=== PATIENT | female | born 1970 ===

== ENCOUNTER 2023-12-31 10:26 | Outpatient (OUT) | payer OTHER, SELFPAY ==
--- NOTE | 2023-12-31 | XR_ITS ---
The [address] [address] Patient Name: AZUCENA EDOUARD MRN: [id number] date: 1970 Sex: F Assigned Patient Location: Current Patient Location: Accession/Order Number: [id number] Exam Date: 12/31/2023 10:26 Report Date: 01/03/2024 11:03 At the request of: CURTIS VORA Procedure: XR cervical spine 2-3V EXAMINATION: XR cervical spine 2-3V HISTORY: CERVICAL SPINE PAIN COMPARISON: No relevant comparison available. FINDINGS: BONES: Anterior mechanical fusion C5-C6-7. Normal height and alignment of the vertebral bodies. No significant facet arthropathy. DISC SPACES: Interval vertebral disc spacers C5-C6, C6-C7. No significant disc height reduction. PARASPINOUS: Negative. No paraspinous abnormality is seen. OTHER: Negative. XR/XR cervical spine 2-3V IMPRESSION: 1. Surgical changes as detailed above; no appreciable hardware failure. 2. Otherwise unremarkable cervical spine. Electronically authenticated by: RUKHSANA LOCKETT Date: 01/03/2024 11:03
== END 2023-12-31 10:27 | disposition home or self-care (01) ==
PROVIDERS: Visit Provider Orthopaedic Surgery Orthopaedic Surgery of the Spine
DX: M54.2 Cervicalgia (principal); Z47.89 Encounter for other orthopedic aftercare; M43.22 Fusion of spine, cervical region
CPT/HCPCS: 72040

== ENCOUNTER 2024-02-18 12:10 | Outpatient (OUT) | payer OTHER, SELFPAY ==
--- NOTE | 2024-02-18 | XR_ITS ---
[address] [address] Patient Name: AZUCENA EDOUARD MRN: [id number] date: 1970 Sex: F Assigned Patient Location: Current Patient Location: Accession/Order Number: [id number] Exam Date: 02/18/2024 12:11 Report Date: 02/20/2024 07:58 At the request of: CURTIS VORA Procedure: XR cervical spine 2-3V EXAMINATION: XR cervical spine 2-3V HISTORY: CERVICAL SPINE PAIN COMPARISON: XR cervical spine 12/31/2023 FINDINGS: BONES: Straightening of normal lordotic curvature. Mechanical fusion C5-C6-C7 via anterior plate and screws; no appreciable hardware fracture loosening. Grade 1 anterolisthesis of C7 on T1. Multilevel mild degenerative facet arthropathy. DISC SPACES: Intervertebral disc spacers C5-C6, C6-C7. No significant disc height reduction. PARASPINOUS: Negative. No paraspinous abnormality is seen. OTHER: Negative. XR/XR cervical spine 2-3V IMPRESSION: 1. Stable surgical changes without evidence of hardware failure or change in alignment. 2. No appreciable acute abnormality. Stable minimal degenerative changes. Electronically authenticated by: RUKHSANA LOCKETT Date: 02/20/2024 07:58
--- OUTSIDE RECORDS SUMMARY | 2024-02-18 12:13 | XMS_ITS | CCD ---
Author Organization [facility] Care Team Providers Care Simulation Developer Name Role Phone PENNY KEVIN Unavailable Unavailable MILTON VIERA Unavailable Unavailable Penny Kevin Primary Care Provider Penny Kevin MD Primary Care Provider Penny Kevin MD Primary Care Provider Penny Kevin MD Primary Care Provider SERENA HODGES Referring Unavailable PENNY KEVIN Primary Care Unavailable LIBRA WEAVER Attending Unavailable LIBRA WEAVER Referring Unavailable PENNY KEVIN Primary Care Unavailable SHRAVAN QUESADA Referring Unavailable PENNY KEVIN Primary Care Unavailable SHRAVAN QUESADA Referring Unavailable PENNY KEVIN Primary Care Unavailable LIBRA WEAVER Admitting Unavailable LIBRA WEAVER Attending Unavailable PENNY KEVIN Primary Care Unavailable LIBRA WEAVER Admitting Unavailable LIBRA WEAVER Attending Unavailable PENNY KEVIN Primary Care Unavailable SHRAVAN QUESADA Referring Unavailable PENNY KEVIN Primary Care Unavailable SHRAVAN QUESADA Referring Unavailable PENNY KEVIN Primary Care Unavailable Medications Current Medications Medication Drug Class(es) Dates Sig (Normalized) Sig (Original) escitalopram 10 mg oral tablet (2 sources) Serotonin Reuptake Inhibitor Start: 07-13-2019 take 1 tablet by mouth once daily escitalopram (LEXAPRO) 10 MG tablet Take 1 tablet by mouth daily 90 tablet 3 07/13/2019 Active sertraline 100 mg oral tablet (3 sources) Serotonin Reuptake Inhibitor Start: 03-23-2022 take 1 tablet by mouth once daily sertraline (ZOLOFT) 100 MG tablet Take 1 tablet by mouth daily 90 tablet 3 03/23/2022 Active Problems Active Problems Problem Classification Problem Date Documented Da te Episodic/Chronic Other gastrointestinal disorders (6 sources) Celiac disease; Translations: [Celiac disease] Onset: 12-09-2018 07-13-2019 Chronic Spondylosis; intervertebral disc disorders; other back problems (3 sources) Other cervical disc degeneration at C5-C6 level; Translations: [Spondylosis without myelopathy or radiculopathy, cervical region] Onset: 01-05-2023 Chronic Unclassified (3 sources) Patient encounter status; Translations: [Colon cancer screening] Onset: 12-09-2018 Resolved: 01-08-2019 01-08-2019 Past or Other Problems Problem Classification Problem Date Documented Date Episodic/Chronic Nonmalignant breast conditions (1 source) Mammographic microcalcification found on diagnostic imaging of breast; Translations: [Mammographic microcalcification found on diagnostic imaging of breast] Onset: 8 Episodic Other connective tissue disease (1 source) Myalgia of auxiliary muscles, head and neck; Translations: [Myalgia of auxiliary muscles, head and neck] Onset: 3 Episodic Spondylosis; intervertebral disc disorders; other back problems (5 sources) Neck pain; Translations: [Cervicalgia] Onset: 3 Episodic Superficial injury; contusion (6 sources) Contusion of lower limb; Translations: [Contusion of left lower leg, initial encounter] Onset: 9 Resolved: 0 07-13-2019 Episodic Unclassified (7 sources) Other abnormal and inconclusive findings on diagnostic imaging of breast; Translations: [Patient encounter status] Onset: 8 Resolved: 9 Episodic Results Test Name Value Interpretation Reference Range Facility MRSA, DNA, Nasalon 4 MRSA, DNA, Nasal Negative Normal NEG [facility] Comment on above: Result Comment: LAW DONATO: MRSA DNA not detected by nucleic acid amplification. Results should be used as an adjunct to nosocomial control efforts to identify patients needing enhanced precautions. The test is not intended to identify patients with staphylococcal infections. Results should not be used to guide or monitor treatment for MRSA infections. Performed By: #### P T, PTT, BMP, CBC #### [facility] [address] [place], [place] [id number] [employer] Operator: Damien Deleon MD #### MRSANO #### [id number] [place], [place] [id number] [employer] Operator: Denny Shelton MD [facility] [address] [place], [place] [id number] [employer] Operator: Damien Deleon MD XR CHEST (2 VW)on 11-03-2023 XR CHEST (2 VW) EXAMINATION: TWO XRAY VIEWS OF THE CHEST 11/02/2023 2:48 pm COMPARISON: None. HISTORY: ORDERING SYSTEM PROVIDED HISTORY: Pre-op evaluation FINDINGS: The lungs are without acute focal process. There is no effusion or pneumothorax. The cardiomediastinal silhouette is without acute process. The osseous structures are without acute process. IMPRESSION: No acute process. Interpreted by: Wiley Ingram MD Signed by: Wiley Ingram MD 11/03/23 Final result Normal [facility] XR Chest 2 Viewson No acute process. [facility] CON[facility] EXAMINATION: TWO XRAY VIEWS OF THE CHEST 11/02/2023 2:48 pm COMPARISON: None. HISTORY: ORDERING SYSTEM PROVIDED HISTORY: Pre-op evaluation FINDINGS: The lungs are without acute focal process. There is no effusion or pneumothorax. The cardiomediastinal silhouette is without acute process. The osseous structures are without acute process. [facility] Wiley Ingram MD - 11/03/2023 EXAMINATION: TWO XRAY VIEWS OF THE CHEST 11/02/2023 2:48 pm COMPARISON: None. HISTORY: ORDERING SYSTEM PROVIDED HISTORY: Pre-op evaluation FINDINGS: The lungs are without acute focal process. There is no effusion or pneumothorax. The cardiomediastinal silhouette is without acute process. The osseous structures are without acute process. IMPRESSION: No acute process. [facility] XR Chest 2 ViewsOrdered By: Wiley Ingram on 11-03-2023 [facility] Work Phone: APTTon 11-02-2023 aPTT Coag (Bld) [Time] 28.8 s Normal 26.8-34.8 [facility] Comment on above: Result Comment: IV Heparin Therapy Range: 62.0-94.0 Performed By: #### P T, PTT, BMP, CBC #### [address] [place] [address] [employer] Operator: Damien Deleon MD #### MRSANO #### [facility] [address] [place] [address] [employer] Operator: Denny Shelton MD [address] [place] [address] [employer] Operator: Damien Deleon MD Basic Metabolic Profon 11-01 Anion gap [Moles/Vol] 9 mmol/L Normal -17 [facility] Comment on above: Performed By: #### P T, PTT, BMP, CBC #### [address] [place] [address] [employer] Operator: Damien Deleon MD #### MRSANO #### [facility] [address] [place] [address] [employer] Operator: Denny Shelton MD [address] [place] [address] [employer] Operator: Damien Deleon MD BUN/CRE Ratio 24 High 9-20 [facility] Comment on above: Performed By: #### P T, PTT, BMP, CBC #### [address] [place], [place] [phone] [employer] Operator: Damien Deleon MD #### MRSANO #### [facility] [address] [place] [address] [employer] Operator: Denny Shelton MD [address] [place], [place] [phone] [employer] Operator: Damien Deleon MD Calcium [Mass/Vol] 9.5 mg/dL Normal 8.6-10.4 [facility] Comment on above: Performed By: #### P T, PTT, BMP, CBC #### [facility] [address] [place] [address] [employer] Operator: Damien Deleon MD #### MRSANO #### [facility] [address] [place] [address] [employer] Operator: Denny Shelton MD [address] [place] [address] [employer] Operator: Damien Deleon MD Chloride [Moles/Vol] 101 mmol/L Normal 98-107 [facility] Comment on above: Performed By: #### P T, PTT, BMP, CBC #### [address] [place] [address] [employer] Operator: Damien Deleon MD #### MRSANO #### [address] [address] [employer] Operator: Denny Shelton MD [facility] [address] [place] [address] [place] [address] [employer] Operator: Damien Deleon MD CO2 [Moles/Vol] 29 mmol/L Normal 20-31 [facility] Comment on above: Performed By: #### P T, PTT, BMP, CBC #### [address] [place] [address] [employer] Operator: Damien Deleon MD #### MRSANO #### [facility] [address] [place] [address] [employer] Operator: Denny Shelton MD [facility] [address] [place] [address] [place] [address] [employer] Operator: Damien Deleon MD Creatinine [Mass/Vol] 0.7 mg/dL Normal 0.5-0.9 [facility] Comment on above: Performed By: #### P T, PTT, BMP, CBC #### [facility] [address] [place], [place] [phone] [employer] Operator: Damien Deleon MD #### MRSANO #### [address] [place] [address] [employer] Operator: Denny Shelton MD [address] [place], [place] [phone] [employer] Operator: Damien Deleon MD GFR/1.73 sq M.predicted among non-blacks MDRD (S/P/Bld) [Vol rate/Area] mL/min/{1.73_m2} Normal >60 [facility] Comment on above: Result Comment: These results are not intended for use in patients <18 years of age. eGFR results are calculated without a race factor using the 2020 CKD-EPI equation. Careful clinical correlation is recommended, particularly when comparing to results calculated using previous equations. The CKD-EPI equation is less accurate in patients with extremes of muscle mass, extra-renal metabolism of creatine, excessive creatine ingestion, or following therapy that affects renal tubular secretion. Performed By: #### P T, PTT, BMP, CBC #### [address] [place] [phone] [employer] Operator: Damien Deleon MD #### MRSANO #### [address] [address] [employer] Operator: Denny Shelton MD [address] [place], [place] [phone] [employer] Operator: Damien Deleon MD Glucose [Mass/Vol] 88 mg/dL Normal 70-99 [facility] Comment on above: Performed By: #### P T, PTT, BMP, CBC #### [address] [place], [place] [id number] [employer] Operator: Damien Deleon MD #### MRSANO #### [address] [place] [address] [employer] Operator: Denny Shelton MD [address] [place] [address] [employer] Operator: Damien Deleon MD Potassium [Moles/Vol] 3.8 mmol/L Normal 3.7-5.3 [facility] Comment on above: Performed By: #### P T, PTT, BMP, CBC #### [address] [place] [address] [employer] Operator: Damien Deleon MD #### MRSANO #### [address] [address] [employer] Operator: Denny Shelton MD [address] [place] [address] [employer] Operator: Damien Deleon MD Sodium [Moles/Vol] 139 mmol/L Normal 135-144 [facility] Comment on above: Performed By: #### P T, PTT, BMP, CBC #### [address] [place] [address] [employer] Operator: Damien Deleon MD #### MRSANO #### [facility] [address] [place] [address] [employer] Operator: Denny Shelton MD [address] [place] [address] [employer] Operator: Damien Deleon MD Urea nitrogen [Mass/Vol] 17 mg/dL Normal 6-20 [facility] Comment on above: Performed By: #### P T, PTT, BMP, CBC #### [address] [place] [address] [employer] Operator: Damien Deleon MD #### MRSANO #### [facility] [address] [place] [address] [employer] Operator: Denny Shelton MD [address] [place] [address] [employer] Operator: Damien Deleon MD CBCon 11-02-2023 Erythrocyte distribution width (RBC) [Ratio] 13.2 % Normal 11.8-14.4 [facility] Comment on above: Performed By: #### P T, PTT, BMP, CBC #### [address] [place] [address] [employer] Operator: Damien Deleon MD #### MRSANO #### [address] [place] [address] [employer] Operator: Denny Shelton MD [address] [place] [address] [employer] Operator: Damien Deleon MD Hematocrit (Bld) [Volume fraction] 38.2 % Normal 36.3-47.1 [facility] Comment on above: Performed By: #### P T, PTT, BMP, CBC #### [address] [place] [address] [employer] Operator: Damien Deleon MD #### MRSANO #### [address] [address] [employer] Operator: Denny Shelton MD [address] [place] [address] [employer] Operator: Damien Deleon MD Hemoglobin (Bld) [Mass/Vol] 12.7 g/dL Normal 11.9-15.1 [facility] Comment on above: Performed By: #### P T, PTT, BMP, CBC #### [address] [place] [address] [employer] Operator: Damien Deleon MD #### MRSANO #### [address] [place] [address] [employer] Operator: Denny Shelton MD [address] [place], [place] [phone] [employer] Operator: Damien Deleon MD MCH (RBC) [Entitic mass] 28.2 pg Normal 25.2-33.5 [facility] Comment on above: Performed By: #### P T, PTT, BMP, CBC #### [address] [place], [place] [phone] [employer] Operator: Damien Deleon MD #### MRSANO #### [address] [id number] [employer] Operator: Denny Shelton MD [address] [place] [address] [employer] Operator: Damien Deleon MD MCHC (RBC) [Mass/Vol] 33.2 g/dL Normal 28.4-34.8 [facility] Comment on above: Performed By: #### P T, PTT, BMP, CBC #### [address] [place] [phone] [employer] Operator: Damien Deleon MD #### MRSANO #### [address] [address] [employer] Operator: Denny Shelton MD [address] [place] [address] [employer] Operator: Damien Deleon MD MCV (RBC) [Entitic vol] 84.9 fL Normal 82.6-102.9 [facility] Comment on above: Performed By: #### P T, PTT, BMP, CBC #### [address] [place] [phone] [employer] Operator: Damien Deleon MD #### MRSANO #### [address] [address] [employer] Operator: Denny Shelton MD [address] [place], [place] [phone] [employer] Operator: Damien Deleon MD NRBC Automated 0.0 per 100 WBC Normal 0.0 [facility] Comment on above: Performed By: #### P T, PTT, BMP, CBC #### [address] [place] [address] [employer] Operator: Damien Deleon MD #### MRSANO #### [facility] [address] [place] [address] [employer] Operator: Denny Shelton MD [address] [place] [address] [employer] Operator: Damien Deleon MD Platelet mean volume (Bld) [Entitic vol] 11.0 fL Normal 8.1-13.5 [facility] Comment on above: Performed By: #### P T, PTT, BMP, CBC #### [address] [place] [address] [employer] Operator: Damien Deleon MD #### MRSANO #### [address] [address] [employer] Operator: Denny Shelton MD [address] [place] [address] [employer] Operator: Damien Deleon MD Platelets (Bld) [#/Vol] 247 10*3/uL Normal 138-453 [facility] Comment on above: Performed By: #### P T, PTT, BMP, CBC #### [address] [place] [address] [employer] Operator: Damien Deleon MD #### MRSANO #### [facility] [address] [place] [address] [employer] Operator: Denny Shelton MD [address] [place] [address] [employer] Operator: Damien Deleon MD RBC (Bld) [#/Vol] 4.50 10*6/uL Normal 3.95-5.11 [facility] Comment on above: Performed By: #### P T, PTT, BMP, CBC #### [address] [place] [address] [employer] Operator: Damien Deleon MD #### MRSANO #### [address] [place] [address] [employer] Operator: Denny Shelton MD [address] [place] [address] [employer] Operator: Damien Deleon MD WBC (Bld) [#/Vol] 8.0 10*3/uL Normal 3.5-11.3 [facility] Comment on above: Performed By: #### P T, PTT, BMP, CBC #### [address] [place] [address] [employer] Operator: Damien Deleon MD #### MRSANO #### [address] [address] [employer] Operator: Denny Shelton MD [address] [place] [address] [employer] Operator: Damien Deleon MD MRSA, DNA, Nasalon Specimen Description .NASAL SWAB Normal [facility] Comment on above: Performed By: #### P T, PTT, BMP, CBC #### [address] [place] [address] [employer] Operator: Damien Deleon MD #### MRSANO #### [address] [address] [employer] Operator: Denny Shelton MD [address] [place], [place] [phone] [employer] Operator: Damien Deleon MD PTon 3 INR Coag (PPP) [Relative time] 1.0 {INR} Normal [facility] Comment on above: Result Comment: Therapeutic Range: Moderate Anticoagulant Intensity: INR = 2.0-3.0 High Anticoagulant Intensity: INR = 2.5-3.5 Performed By: #### P T, PTT, BMP, CBC #### [address] [place], [place] [phone] [employer] Operator: Damien Deleon MD #### MRSANO #### [facility] [address] [place], [place] [phone] [employer] Operator: Denny Shelton MD [address] [place] [phone] [employer] Operator: Damien Deleon MD PT Coag (PPP) [Time] 12.5 s Normal 11.7-14.1 [facility] Comment on above: Performed By: #### P T, PTT, BMP, CBC #### [address] [place], [place] [address] [employer] Operator: Damien Deleon MD #### MRSANO #### [id number] [place], [place] [address] [employer] Operator: Denny Shelton MD [address] [place] [address] [employer] Operator: Damien Deleon MD XR Chest 2 Viewson Radiology Study observation (narrative) [facility] FLUORO FOR SURGICAL PROCEDUR ESon 08-06-2023 FLUORO FOR SURGICAL PROCEDURES Radiology exam is complete. No Radiologist dictation. Please follow up with ordering provider. Final result Normal [facility] [place] DIGITAL SCREEN SELF REFERRAL W OR WO CAD BILATERALon 07-22-2023 [facility] [place] DIGITAL S[place] S[place]F REFERRAL W OR WO CAD BILATERAL EXAMINATION: SCREENING DIGITAL BILATERAL MAMMOGRAM WITH TOMOSYNTHESIS, 07/21/2023 TECHNIQUE: Screening mammography of the bilateral breasts was performed with tomosynthesis. 2D standard and 3D tomosynthesis combination imaging performed through both breasts in the MLO and CC projection. Computer aided detection was utilized in the interpretation of this exam. COMPARISON: 24 June 2022; 23 April 2020 HISTORY: Screening. Negative family history of breast cancer. No hormonal replacement therapy. Prior right surgical biopsy 2006, benign. FINDINGS: Both breasts are composed of extremely dense parenchyma. No skin thickening, nipple contour changes, suspicious calcifications, suspicious masses, areas of architectural distortion or significant interval changes are noted. A few stable benign-appearing calcifications are noted in the breast. IMPRESSION: No evidence of malignancy. Advise annual screening mammography. BREAST DENSITY SUMMARY D: The breasts are extremely dense which may obscure small masses. BI-RADS 2 BIRADS: BIRADS - CATEGORY 2 Benign Findings. Normal interval follow-up is recommended in 12 months. OVERALL ASSESSMENT - BENIGN A letter of notification will be sent to the patient regarding the results. The [employer] recommends annual mammograms for women 40 years and older. Interpreted by: Yvette Mccarthy MD Signed by: Yvette Mccarthy MD 07/22/23 Final result Normal [facility] FLUORO FOR SURGICAL PROCEDUR ESon 03-26-2023 FLUORO FOR SURGICAL PROCEDURES Radiology exam is complete. No Radiologist dictation. Please follow up with ordering provider. Final result Normal [facility] MRI CERVICAL SPINE WO CONTRA STon 01-07-2023 MRI CERVICAL SPINE WO CONTRAST EXAMINATION: MRI OF THE CERVICAL SPINE WITHOUT CONTRAST 01/05/2023 2:40 pm TECHNIQUE: Multiplanar multisequence MRI of the cervical spine was performed without the administration of intravenous contrast. COMPARISON: None. HISTORY: ORDERING SYSTEM PROVIDED HISTORY: Myalgia of auxiliary muscles, head and neck FINDINGS: BONES/ALIGNMENT: The vertebral body heights are maintained. There is age-appropriate bone marrow signal. There is a hemangioma T1 vertebral body. There is multilevel degenerative disc disease with loss of disc signal. There is disc space narrowing at the C5-6 and C6-7 levels. There is no spondylolisthesis. SPINAL CORD: No abnormal cord signal is seen. SOFT TISSUES: No paraspinal mass identified. C2-C3: There is no significant disc protrusion, spinal canal stenosis or neural foraminal narrowing. C3-C4: There is a disc osteophyte complex with uncovertebral and facet hypertrophy. There is canal stenosis measuring 9 mm in AP dimension. There is no foraminal narrowing. C4-C5: There is a disc osteophyte complex with uncovertebral and facet hypertrophy. There is canal stenosis measuring 9 mm in AP dimension. There is moderate right foraminal narrowing and no significant left foraminal narrowing. C5-C6: There is a disc osteophyte complex with uncovertebral and facet hypertrophy. There is canal stenosis measuring 7 mm in AP dimension. There is severe bilateral foraminal narrowing. C6-C7: There is a disc osteophyte complex with uncovertebral and facet hypertrophy. There is canal stenosis measuring 7 mm in AP dimension. There is moderate left and severe right foraminal narrowing. C7-T1: There is no significant disc protrusion, spinal canal stenosis or neural foraminal narrowing. IMPRESSION: Multilevel degenerative change with canal stenosis most pronounced at C5-6 and C6-7. Foraminal narrowing as described above. Interpreted by: Walt Bermudez MD Signed by: Walt Bermudez MD 01/07/23 Final result Normal [facility] XR CERVICAL SPINE (4-5 VIEWS )on 10-21-2022 No acute findings. Multilevel degenerative change. [facility] EXAMINATION: 6 XRAY VIEWS OF THE CERVICAL SPINE 10/19/2022 1:53 pm COMPARISON: None. HISTORY: ORDERING SYSTEM PROVIDED HISTORY: Neck pain TECHNOLOGIST PROVIDED HISTORY: neck pain, worse after adjustment FINDINGS: Cervical spine alignment is anatomic. No acute osseous abnormality. Moderate degenerative change most significant C5-6 C6-7 with loss of disc height endplate spondylosis. Uncovertebral joint spurring at these levels encroaches neural foramina bilaterally prevertebral soft tissues unremarkable. [facility] Jluis Quesada DO - 10/21/2022 EXAMINATION: 6 XRAY VIEWS OF THE CERVICAL SPINE 10/19/2022 1:53 pm COMPARISON: None. HISTORY: ORDERING SYSTEM PROVIDED HISTORY: Neck pain TECHNOLOGIST PROVIDED HISTORY: neck pain, worse after adjustment FINDINGS: Cervical spine alignment is anatomic. No acute osseous abnormality. Moderate degenerative change most significant C5-6 C6-7 with loss of disc height endplate spondylosis. Uncovertebral joint spurring at these levels encroaches neural foramina bilaterally prevertebral soft tissues unremarkable. IMPRESSION: No acute findings. Multilevel degenerative change. [employer] [facility] Phone: XR CERVICAL SPINE (4-5 VIEWS )Ordered By: Jluis Quesada on 10-21-2022 [employer] [facility] Phone: XR CERVICAL SPINE (4-5 VIEWS )on 10-19-2022 Radiology Study observation (narrative) [employer] Phone: [facility] [place] DIGITAL SCREEN BILA TERALon 06-24-2022 No mammographic evidence of malignancy. BI-RADS 1 BIRADS: BIRADS - CATEGORY 1 Negative, no evidence of malignancy. Normal interval follow-up is recommended in 12 months. OVERALL ASSESSMENT - NEGATIVE A letter of notification will be sent to the patient regarding the results. The [employer] recommends annual mammograms for women 40 years and older. [facility] EXAMINATION: SCREENING DIGITAL BILATERAL MAMMOGRAM WITH TOMOSYNTHESIS 06/24/2022 TECHNIQUE: Screening mammography was performed with tomosynthesis including MLO and CC views of the bilateral breasts. Computer aided detection was used for the interpretation of this exam. COMPARISON: Mammograms dating back to 2014 HISTORY: ORDERING SYSTEM PROVIDED HISTORY: Screening mammogram for breast cancer TECHNOLOGIST PROVIDED HISTORY: Is the patient ?->No FINDINGS: The breasts are extremely dense, which lowers the sensitivity of mammography. Within that limitation, there is no new dominant mass, suspicious microcalcification, or area of architectural distortion. [facility] Radiology Study observation (narrative) [employer] Phone: [facility] [place] DIGITAL SCREEN BILA TERALOrdered By: [place] on 06-24-2022 [employer] Phone: Gynecology Office/Clinic Not gertrudis 08-20-2021 Gynecology Office/Clinic Note Chief Complaint Annual History of Present Illness Pelvic Pain: No Painful Sex: No Abnormal Vaginal Discharge: No Abnormal Vaginal Bleeding: No Vaginal Dryness: No Vaginal Itch: No Vaginal Burning: No Vaginal Odor: No Hot Flashes: No Night Sweats: No Breast Lump: No Breast Pain: No Menstrual Periods: No Reason for No Menstrual Periods: TLH Sexually Active: Yes Forced to Have Sex: No 51 y/o, , Annual Exam, No complaints. Denies any menopausal symptoms. Does have an aunt with breast cancer. Her own mother diet at early age and she is concerned with genetic cancers with her daughters getting and starting families. She want to proceed with genetic screening even if her insurance does not cover. Last pap: HX robotic TLH BS, ANUSHA & Cystoscopy 01/26/14. Mammogram: 04/23/20 Benign-gets at [facility] Colonoscopy: 2 yrs ago, Normal, H/O Celiac Disease, Dr. Isabel-will be seeing GI her BD: Never Labs: PCP Dr. Kevin-yearly Review of Systems Head Migraines: No Headaches: No Eyes Corrective Lenses: Contact lenses Blurred vision: None Ears, Nose, Throat Congestion: No Vertigo: No Sore throat: No Nasal drainage: No Cardio Respiratory Peripheral edema: No Heart Irregularity: No Chest Pain: No Shortness of Breath: No Gastrointestinal Bloating: No Reflux/heartburn: No Abdominal Pain: No Change in bowel habits: No Urinary Urinary Incontinence: No Urinary frequency: No Nocturia: No Urgency: No Painful urination: No Musculoskeletal Back pain: Yes Muscle aches: Yes Joint pain: Yes Integumentary Lesions: No Moles: No Hair changes: No Psycho Social Sleep Problems: No Anxiety: No Suicidal Ideation: No Homicidal Ideation: No Depression: No Hematologic/Lymphatic Bruising: No Bleeding tendencies: No Endocrine Abnormal weight gain: No Abnormal weight loss: No Fatigue: No Physical Exam Vitals & Measurements BP: 102/58 HT: 163.4 cm WT: 58.2 kg WT: 58.2 kg (Dosing) BMI: 21.8 General: Alert and oriented, well nourished, no acute distress. Eye: PERRL, EOMI, normal conjunctiva. HEENT:Normocephalic, clear tympanic membranes, normal hearing, moist oral mucosa, no scleral icterus, no sinus tenderness. Neck: Supple, non-tender, no carotid bruits, no JVD, no lymphadenopathy. Lungs: Clear to auscultation and percussion, non-labored respiration. Heart: Normal rate, regular rhythm, no murmur, gallop or edema. Abdomen: Soft, non-tender, non-distended, normal bowel sounds, no masses. Musculoskeletal: Normal range of motion and strength, no tenderness or swelling. Skin: Skin is warm, dry and pink, no rashes or lesions. Neurologic: Awake, alert, and oriented X3, CN II-XII intact. Psychiatric: Cooperative, appropriate mood and affect. Breast exam: No fibrocystic changes noted bilaterally, no masses, tenderness, skin changes or nipple discharge. External Genitalia: Normal urethral meatus, no lesions, vulvar skin intact. Genitourinary: Normal vaginal mucosa, no lesions or abnormal discharge, cervix surgically absent, no bleeding. No cystocele or rectocele. Bimanual exam: Absent uterus-s/p TLH. No adnexal tenderness or masses. Additional Vitals No qualifying data available. Assessment/Plan 1. Encounter for gynecological examination (general) (routine) without abnormal findings Annual exam 1. Continue with breast self-exam/mammogram/col onoscopy screening 2. Maintain a low-fat, low sugar diet 3. Weight management, BMI, exercise (30 minutes daily) 4. Water intake (64 oz daily) and decrease caffeine 5. Calcium supplement with Vitamin D 6. Discussed menopausal symptom management 7. Prosper info given-Maternal aunt breast cancer. She wants to proceed even if insurance does not cover. Follow up with Annual and as needed Medical Decision Making Chronic conditions NOT treated during this visit that affected my overall medical decision making: depression Treatment plans discussed but not opted for at this time: see above Prescribed medication that requires intensive monitoring for toxicity: no I have reviewed the patient?s medication list for medication interactions/contraindi cations and/or for upcoming procedures: no Time Spent with the Patient I have personally spent 25 minutes on this date, directly related to today's patient visit, including pre and post visit work, for this date of service. Time listed does not include time spent on separately billable services. Problem List/Past Medical History Ongoing Breast pain Depression Encounter for gynecological examination (general) (routine) without abnormal findings Historical No qualifying data Procedure/Surgical History Breast Lumpectomy DELIVERY DELIVERY DELIVERY Robotic TLH with BS, ANUSHA and Cystoscopy (01/26/2014) Medications Zoloft 25 mg oral tablet, 25 mg= 1 tabs, Oral, Daily Allergies No Known Medication Allergies Social (more content not included)... Normal [facility] [place] DIGITAL SCREEN SELF REFERRAL W OR WO CAD BILATERALon 04-23-2020 No evidence of malignancy. Advise annual screening mammography. BREAST DENSITY SUMMARY D: The breasts are extremely dense which may obscure small masses. BI-RADS 2 BIRADS: BIRADS - CATEGORY 2 Benign Findings. Normal interval follow-up is recommended in 12 months. OVERALL ASSESSMENT - BENIGN A letter of notification will be sent to the patient regarding the results. The [employer] recommends annual mammograms for women 40 years and older. [place] EXAMINATION: SCREENI NG DIGITAL BILATERAL MAMMOGRAM WITH TOMOSYNTHESIS, 04/23/2020 TECHNIQUE: Screening mammography of the bilateral breasts was performed with tomosynthesis. 2D standard and 3D tomosynthesis combination imaging performed through both breasts in the MLO and CC projection. Computer aided detection was utilized in the interpretation of this exam. COMPARISON: 26 November 2017; 08 September 2016; 17 April 2015 HISTORY: Screening. Positive family history of breast cancer; patient's aunt diagnosed with breast cancer in 60s. Negative history of hormonal replacement therapy. Prior surgical biopsy 2007 with benign histology. FINDINGS: The breasts are extremely dense which can obscure small masses. No skin thickening, nipple contour changes, malignant type microcalcifications, areas of architectural distortion or significant interval changes are noted. Scattered benign appearing calcifications are present in both breasts. [place], [place] Karel, Mhpn Incoming Radiant Results From [facility] - 04/23/2020 3:42 PM EST EXAMINATION: SCREENING DIGITAL BILATERAL MAMMOGRAM WITH TOMOSYNTHESIS, 04/23/2020 TECHNIQUE: Screening mammography of the bilateral breasts was performed with tomosynthesis. 2D standard and 3D tomosynthesis combination imaging performed through both breasts in the MLO and CC projection. Computer aided detection was utilized in the interpretation of this exam. COMPARISON: 26 November 2017; 08 September 2016; 17 April 2015 HISTORY: Screening. Positive family history of breast cancer; patient's aunt diagnosed with breast cancer in 60s. Negative history of hormonal replacement therapy. Prior surgical biopsy 2007 with benign histology. FINDINGS: The breasts are extremely dense which can obscure small masses. No skin thickening, nipple contour changes, malignant type microcalcifications, areas of architectural distortion or significant interval changes are noted. Scattered benign appearing calcifications are present in both breasts. IMPRESSION: No evidence of malignancy. Advise annual screening mammography. BREAST DENSITY SUMMARY D: The breasts are extremely dense which may obscure small masses. BI-RADS 2 BIRADS: BIRADS - CATEGORY 2 Benign Findings. Normal interval follow-up is recommended in 12 months. OVERALL ASSESSMENT - BENIGN A letter of notification will be sent to the patient regarding the results. The [employer] recommends annual mammograms for women 40 years and older. [place] MAMM UNI DAIG W CAD RTon MAMM MELISSA Hernandez CAD RT EXAMINATION: MAMM MELISSA Hernandez CAD RIGHT [id number] CLINICAL HISTORY: 46 year old female with history of microcalcifications in the right breast.COMPARISON: 09/09/2016, 09/08/2016. BREAST COMPOSITION: The breast(s) are heterogeneously dense, which may obscure small masses. TECHNIQUE: Digital MLO and CC views of the breast(s) were obtained. Computer aided detection was also used. FINDINGS: Four total films including magnification views of the right breast. Redemonstration of a grouping of microcalcifications within the lower outer quadrant of the right breast. The majority are punctate or round and distribution is nonspecific.IMPRESSION: Stable appearance of grouping of microcalcifications noted within the right breast. Continued follow up is advised in the short term. These may be reevaluated in conjunction with the patient's next bilateral mammogram due in August or later 2017.BI-RADS 3 - Findings are probably benign. A short interval followup is recommended in 6 months. OVERALL ASSESSMENT- PROBABLY BENIGNA letter of notification will be sent to the patient regarding the results. Report electronically signed by: Dr. Roberto Perez [facility] Encounters Encounter Date Encounter Type Care Provider Facility Start: 11-02-2023 Encounter for other preprocedural examination [facility] Start: 11-02-2023 End: 11-04-2023 Preprocedural examination done [address] Work Phone: Start: 11-02-2023 End: 11-04-2023 Subsequent hospital visit by physician Ferdinand Pope Dr [address] Radiology Comment on above: Pre-op evaluation Start: 11-02-2023 End: 11-04-2023 ambulatory SHRAVAN QUESADA [facility] Start: 08-06-2023 End: 08-06-2023 [facility] Start: 07-21-2023 End: 07-23-2023 [facility] Start: 03-26-2023 End: 03-26-2023 [facility]ulatory [facility] Start: 01-05-2023 End: 01-07-2023 ambulatory [facility] Start: 10-19-2022 End: 10-21-2022 Subsequent hospital visit by physician [facility] Xr Dr Room 4 [facility] Laboratory Comment on above: Neck pain Start: 06-24-2022 End: 06-26-2022 Subsequent hospital visit by physician [facility] Mammography Room At [facility] Mammography Comment on above: Screening mammogram for breast cancer Start: 04-23-2020 End: 04-25-2020 Subsequent hospital visit by physician [facility] Mammography Room At [facility] Mammography Comment on above: Breast cancer screen ing by mammogram Start: 09-14-2019 End: 09-14-2019 Subsequent hospital visit by physician Penny Kevin [facility] Laboratory Start: 06-04-2017 End: 06-04-2017 Ambulatory PENNY KEVIN Facility:[facility] Procedures Date Procedure Procedure Detail Performing Clinician Start: 11-02-2023 Radiologic exam ches t 2 views Shravan Quesada PA-C Work Phone: Start: 10-19-2022 Radex spine cervical 4 or 5 views Penny Kevin MD Work Phone: Start: 06-24-2022 Screening mammograph y bi 2-view breast inc cad Penny Kevin MD Work Phone: Start: 04-23-2020 Screening mammograph y bi 2-view breast inc cad Penny Kevin Work Phone: Start: 12-13-2018 Colonoscopy [facility] Start: 06-01-2013 Microscopic observat ion [Identifier] in Cervix by Cyto stain [facility] Plan of Treatment Date Care Activity Detail Author Start: 12-22-2036 DTaP/Tdap/Td vaccine (1 - Tdap) DTaP/Tdap/Td vaccine (1 - Tdap) [facility] Comment on above: Postponed from 07/29 (Patient Refused) Start: 12-22-2036 HIV screening HIV screen [facility] Comment on above: Postponed from 07/29 (Patient Refused) Start: 12-13-2028 Screening for malign ant neoplasm of colon [facility] Start: 10-08-2027 Lipid panel Lipids [facility] Start: 11-28-2025 Lipid panel Lipids [facility] Start: 07-20-2025 Screening for malign ant neoplasm of breast Breast cancer screen [facility] Start: 11-02-2024 Depression Screen Depression Screen [facility] Start: 06-24-2024 Screening for malign ant neoplasm of breast Breast cancer screen [facility] Start: 04-07-2024 End: 04-07-2024 Patient encounter procedure 04/07/2024 8:45 AM EST Office Visit [facility] [address] [place] [id number] Penny Kevin MD [address] [place] [address] annual wellness [facility] Comment on above: annual wellness Start: 12-16-2023 Influenza vaccination Flu vacc ine (Season Ended) [facility] Start: 12-01-2023 End: 12-01-2023 Patient encounter procedure 12/01/2023 8:00 AM EDT Office Visit [facility] [place] [id number] Serena Hodges PA-C [address] [place] [address] yearly [facility] Comment on above: yearly Start: 11-19-2023 Screening for malign ant neoplasm of cervix [facility] Start: 07-21-2023 Lipid panel Lipid screen [facility]- [place], [place] Start: 03-26-2023 End: 03-26-2023 Patient encounter procedure 03/26/2023 Office Visit Internal Medicine Penny Kevin MD [address] [place] [address] [facility] Start: 03-23-2023 Depression Screen Depression Screen [facility] Start: 01-15-2023 COVID-19 Vaccine ( season) COVID-19 Vaccine ( season) [facility] Start: 12-15-2022 Influenza vaccination Flu vacc ine (Season Ended) [facility] Start: 11-18-2022 End: 11-18-2022 Patient encounter procedure 11/18/2022 Office Visit Obstetrics and Gynecology Serena Hodges PA-C [address] [place] [address] [facility] Start: 04-23-2022 Screening for malign ant neoplasm of breast Breast cancer screen [place], [place] Start: 05-14-2021 COVID-19 Vaccine (4 - Booster for Moderna series) COVID-19 Vaccine (4 - Booster for Moderna series) [facility] Start: 05-14-2021 COVID-19 Vaccine (5 - Booster for Moderna series) COVID-19 Vaccine (5 - Booster for Moderna series) [facility] Start: 07-23-2020 End: 07-23-2020 Office Visit 07/23/2020 Office Visit Internal Medicine Penny Kevin MD [address] [place] [id number] [phone] Shira Kevin MD [facility] Start: 01-16-2020 Influenza vaccination Flu vaccine (# 1) [place] Start: 11-27-2019 Screening for malign ant neoplasm of breast Breast cancer screen [place] Start: 2018 Shingles Vaccine (1 of 2) Shingles Vaccine (1 of 2) [facility] Start: 06-01-2016 Screening for malign ant neoplasm of cervix [facility] Start: 2013 Screening for malign ant neoplasm of colon [facility] Start: 1998 Screening for malign ant neoplasm of cervix HPV (without or with Pap) [facility] Start: 1986 Hepatitis C screening Hepatitis C sc reen [facility] Start: 1968 Hepatitis B vaccine (1 of 3 - 3-dose series) Hepatitis B vaccine (1 of 3 - 3-dose series) [facility] End: 09-14-2019 Covid-19 Ambulatory Covid-19 Ambulatory Lab Routine Once for 1 Occurrences starting 09/14/2019 until 09/14/2019 [place] Comment on above: Once for 1 Occurrenc es starting 09/14/2019 until 09/14/2019 Covid-19 Ambulatory Covid-19 Amb ulatory Lab Routine 09/14/2019 3:29 PM EDT [place] Immunizations Immunization Date Immunization Notes Care Provider Fa brookety 03-19-2021 COVID-19, MODERNA BL UE border, Primary or Immunocompromised, (age 12y+), IM, 100 mcg/0.5mL [facility] [employer] Work Phone: 03-04-2021 influenza virus vacc ine, unspecified formulation [facility] 06-12-2020 COVID-19, MODERNA BL UE border, Primary or Immunocompromised, (age 12y+), IM, [facility]cg[facility] [employer] Work Phone: 05-15-2020 COVID-19, MODERNA BL UE border, Primary or Immunocompromised, (age 12y+), IM, 100 mcg/0.5mL [facility] 02-28-2019 influenza virus vacc ine, unspecified formulation [place] 03-17-2018 influenza virus vacc ine, unspecified formulation [facility] [place] 02-28-2014 influenza, injectabl e, quadrivalent, preservative free [facility] Work Phone: Payers Date Payer Category Payer Unknown [id number] 2021 Unknown [id number] 2019 Unknown HB SPECIALTY [facility] [id number] 2019-Present Indemnity [id number] [id number] 2018 Unknown MEDICAL MUTUAL M EDICAL MUTUAL [facility] PLUS PLAN MH EMP xxxxxxxxxxxx 2018-Present [phone] [address] [place] [address] xxxxxxxxxxxx [id number] 2014 Unknown [id number] 1968 Unknown [id number] 1968 Unknown [id number] 1968 Unknown [id number] 1968 Unknown [id number] 1968 Unknown [id number] 1968 Unknown [id number] 1968 Unknown [id number] 1968 Unknown [id number] Social History Date Type Detail Facility Start: 07-13-2019 End: 03-23-2022 Tobacco smoking status NHIS Never smoker [place] Start: 07-13-2019 End: 03-23-2022 History SDOH Financial 5 [place] Start: 07-13-2019 End: 10-01-2021 History SDOH Food Worry 1 [email or web address] [place] Start: 07-13-2019 History SDOH Transpo rt Med 2 [email or web address] [place] Start: 06-01-2013 Alcohol Comment occassionally [employer] [place] Sex Assigned At Not on file [employer] [place] Start: 07-13-2019 End: 03-23-2022 Tobacco use and exposure Never used [facility] [facility] Start: 1970 Sex Assigned At Female [facility] [employer] Start: 08-06-2023 End: 11-03-2023 History of Social function [employer] Start: 08-06-2023 End: 11-03-2023 Tobacco use panel [employer] How hard is it for y ou to pay for the very basics like food, housing, medical care, and heating Not hard at all [employer] (I/We) worried wheth er (my/our) food would run out before (I/we) got money to buy more. Never true [employer] At any time in the p ast 12 months, were you homeless or living in correction [including now]? No [employer] Start: 04-19-2021 Gender identity Identifies as female gender (finding) [employer] Start: 04-19-2021 Sexual orientation Heterosexual (kellee carpio) [employer] Clinical Note 08-18-2021 Note Date & Type Note Facility 08-18-2021 Note Patient Education Ma terials Name: Madeline Buck Current Date: 08/18/2021 07:47:35 [place] : 1970 The following sheet(s) are the Patient Education Leaflets for Madeline Buck Oncology Breast Health: Breast Self-Awareness What is breast self-awareness? Breast self-awareness is knowing how your breasts normally look and feel. Your breasts change as you go through different stages of your life. So it's important to learn what is normal for your breasts. Breast self-awareness helps you notice any changes in your breasts right away. Report any changes to your healthcare provider. Why is breast self-awareness important? Many experts now say that women should focus on breast self-awareness instead of doing a breast self-examination (BSE). These experts include the [employer], the U.S. Prevent[employer] Services Task Force, and the [employer]. Some experts even advise not teaching women to do a BSE. That's because research hasn't shown a clear benefit to doing BSEs. Breast self-awareness is different than a BSE. Breast self-awareness isn't about following a certain method and schedule. It's about knowing what's normal for your breasts. That way you can notice even small changes right away. If you see any changes, report them to your healthcare provider. Changes to look for Call your healthcare provider if you find any changes in your breasts that concern you. These changes may include: ? A lump ? Nipple discharge other than breastmilk, especially a bloody discharge ? Swelling ? A change in size or shape ? Skin irritation, such as redness, thickening, or dimpling of the skin ? Swollen lymph nodes in the armpit ? Nipple problems, such as pain or redness If you find a lump Contact your provider if you find lumpiness in one breast, feel something different in the tissue, or feel a definite lump. Sometimes lumpiness may be due to menstrual changes. But there may be reason for concern. Your provider may want to see you right away if you have: ? Nipple discharge that is bloody ? Skin changes on your breast, such as dimpling or puckering It's normal to be upset if you find a lump. But it's important to contact your provider right away. Remember that most breast lumps are benign. This means they are not cancer. ? [id number] [employer]. [address] [place] [address], [place] [address]. All rights reserved. This information is not intended as a substitute for professional medical care. Always follow your healthcare professional's instructions. [facility] Evaluation note Note Date & Type Note Facility Evaluation note Diagnosis Screening mammogram for breast cancer documented in this encounter [facility] [employer] Work Phone: Evaluation note Note Date & Type Note Facility Evaluation note Diagnosis Neck pain Cervicalgia [facility] Phone: Evaluation note Note Date & Type Note Facility Evaluation note Diagnosis Pre-op evaluation Preoperative examination, unspecified documented in this encounter COURTNEY MEJIA [facility] Summary Purpose Family History No Family History Records FoundNo Family History Records FoundNo Family History Records Found Advance Directives No Advanced Directives Records FoundDocuments on File Type Date Recorded Patient Drug Enforcement Administration Agent Expl anation Advance Directives and Living Will Power of Performance Improvement Consultant Documents on File Type Date Recorded Patient Drug Enforcement Administration Agent Expl anation ACP-Advance Directive ACP-Power of Performance Improvement Consultant Latest Code Status on File Code Status Date Activated Date Inactivated Comments Full Code 08/06/2023 12:29 PM 08/06/2023 3:13 PM Code Status History Code Status Date Activated Date Inactivated Comments Full Code 03/26/2023 7:18 AM 03/26/2023 10:27 AM Reason for Referral Status Reason Specialty Diagnoses / Procedures Referred By Contact Referred To Contact Pending Review Radiology Diagnoses Breast cancer screening by mammogram Procedures [facility] [place] [facility] S[facility] SELF REFERRAL W OR WO CAD BILATERAL Penny Kevin MD [address] [place] [address] Specialty Diagnoses / Procedures Referred By Contac t Referred To Contact Radiology Diagnoses Screening mammogram for breast cancer Procedures [facility] [place] [facility] S[facility] BILATERAL Penny Kevin MD [address] [place] [address] Referral ID Status Reason Start Date Expiration Date Visits Re quested Visits Authorized [id number] Closed 03/23/2022 03/23/2023 1 1 Assessments Diagnosis Breast cancer screening by mammogram Additional Source Comments INFORMATION SOURCE (unrecogn ized section and content) DATE CREATED AUTHOR 11/08/2017 [facility] DATE CREATED AUTHOR AUTHOR'S ORGANIZ ATION 08/22/2021 [facility] DATE CREATED AUTHOR AUTHOR'S ORGANIZ ATION 11/06/2023 [facility] Reason for Visit (unrecogniz ed section and content) Status Reason Specialty Diagnoses / Procedures Referred By Contact Referred To Contact Pending Review Radiology Diagnoses Breast cancer screening by mammogram Procedures [facility] [place] [facility] SCREEN SELF REFERRAL W OR WO CAD BILATERAL Penny Kevin MD [address] [place] [id number] Specialty Diagnoses / Procedures Referred By Contac t Referred To Contact Radiology Diagnoses Screening mammogram for breast cancer Procedures [facility] [place] [facility] SCREEN BILATERAL Penny Kevin MD [address] [place] [address] Referral ID Status Reason Start Date Expiration Date Visits Re quested Visits Authorized [id number] Closed 03/23/2022 03/23/2023 1 1 Care Teams (unrecognized sec tion and content) Simulation Developer Relationship Specialty Start Date End Date Penny Kevin MD [address] [place] [address] PCP - General Internal Medicine 06/07/19 Simulation Developer Relationship Specialty Start Date End Date Penny Kevin MD [address] [place] [phone] PCP - General Internal Medicine 06/07/19 Simulation Developer Relationship Specialty Start Date End Date Penny Kevin MD [address] [place] [phone] PCP - General Internal Medicine 06/07/19 Simulation Developer Relationship Specialty Start Date End Date Penny Kevin MD [address] [place] [phone] PCP - General Internal Medicine 06/07/19 FOR RECORDS PERTAINING TO PATIENTS WHO ARE OR HAVE BEEN ENROLLED IN A CHEMICAL DEPENDENCY/SUBSTANCEABUSE PROGRAM, SOME INFORMATION MAY BE OMITTED. This clinical summary was aggregated from multiple sources. Caution should be exercised in using it in the provision of clinical care. This summary normalizes information from multiple sources, and as a consequence, information in this document may materially change the coding, format and clinical context of patient data. In addition, data may be omitted in some cases. CLINICAL DECISIONS SHOULD BE BASED ON THE PRIMARY CLINICAL RECORDS. [employer] [facility]. provides no warranty or guarantee of the accuracy or completeness of information in this document.
== END 2024-02-18 12:11 | disposition home or self-care (01) ==
LOC: EC 12:11
PROVIDERS: Visit Provider Orthopaedic Surgery Orthopaedic Surgery of the Spine
DX: M54.2 Cervicalgia (principal); M43.26 Fusion of spine, lumbar region
CPT/HCPCS: 72040